=== PATIENT | female | born 1980 | race Caucasian/White ===

== ENCOUNTER → 2025-01-18 | Day surgery (SDC) | payer MEDICAID ==
[~2025-01-18] MED LIST: LIDOCAINE HCL 1% 10 MG/ML 10ML VIAL ONE; SODIUM BICARBONATE 4% 2.4MEQ/5ML VIAL IV ONE
== END | disposition home or self-care (01) ==
LOC: RAD 10:03 → EDUNIT# 11:00
PROVIDERS: ATTEND Surgery Surgical Oncology
DX: D24.1 Benign neoplasm of right breast (principal); Z79.899 Other long term (current) drug therapy; Z98.890 Other specified postprocedural states
CPT/HCPCS: 19285; J2003; J3490; A4648

== ENCOUNTER → 2025-01-20 | Day surgery (SDC) | payer MEDICAID ==
[~2025-01-20] VITALS: Ht 154.9 cm; Wt 74.8 kg
[~2025-01-20] MED LIST changes: +CEFAZOLIN SODIUM 1000MG/VIAL ONE; +EPHEDRINE SULFATE 50MG/ML VIAL ONE; +FENTANYL CITRATE/PF 50MCG/ML 2ML VIAL ONE; +HYDROMORPHONE HCL/PF 1MG/ML INJ IV PRN; +HYDROMORPHONE HCL/PF 1MG/ML INJ ONE; -LIDOCAINE HCL 1% 10 MG/ML 10ML VIAL ONE; +MIDAZOLAM HCL 2 MG/2 ML VIAL ONE; +ONDANSETRON HCL 4MG/2ML INJ IV PRN; +ONDANSETRON HCL 4MG/2ML INJ ONE; +PHENYLEPHRINE HCL 10MG/ML 1ML IV ONE; +PROPOFOL 200MG/20ML VIAL IV ONE; -SODIUM BICARBONATE 4% 2.4MEQ/5ML VIAL IV ONE
[2025-01-20 07:38] LABS: UCG SCREEN NEGATIVE
[2025-01-20] MEDS: LACTATED RINGERS 1,000 ML IV SCH (08:12)
[2025-01-20] MEDS: ACETAMINOPHEN 1000MG/100ML 100 ML IV NR (11:51)
== END | disposition home or self-care (01) ==
LOC: OR 07:08
PROVIDERS: ATTEND Surgery Surgical Oncology
DX: D24.1 Benign neoplasm of right breast (principal); N60.01 Solitary cyst of right breast; Z79.899 Other long term (current) drug therapy; Z98.890 Other specified postprocedural states
CPT/HCPCS: 19125; 76098; 81025; 88305; J3010; J0690; J3490; J2250; J2405; J2371; J2704; J1171; J0131